=== PATIENT | female | born 1965 | race Caucasian/White ===

== ENCOUNTER → 2021-07-26 | Outpatient (CLI) | payer MEDICARE, OTHER ==
[2021-07-26 13:37] LABS: HEMOGLOBIN 14.5 gm/dl (12.3-15.3); RED BLOOD COUNT 4.65 M/UL (4.00-5.10)
[2021-07-26 13:56] LABS: BUN/CREATININE RATIO 12 (0-10)
== END ==
LOC: LAB 11:30
PROVIDERS: Family Medicine
DX: E78.5 Hyperlipidemia, unspecified (principal); E55.9 Vitamin D deficiency, unspecified; D51.0 Vitamin B12 deficiency anemia due to intrinsic factor deficiency; F32.9 Major depressive disorder, single episode, unspecified
CPT/HCPCS: 36415; 80053; 80061; 82607; 84443; 85027

== ENCOUNTER 2022-05-29 09:59 | Observation (INO) | payer MEDICARE, OTHER ==
[~2022-05-29] VITALS: Ht 167.6 cm; Wt 56.7 kg
[2022-05-29 12:42] LABS: HEMOGLOBIN 13.9 gm/dl (12.3-15.3); RED BLOOD COUNT 4.64 M/UL (4.00-5.10); WHITE BLOOD COUNT 12.6 K/UL (4.5-11.0)
[2022-05-29 13:30] LABS: BUN/CREATININE RATIO 16 (0-10)
[2022-05-29] MEDS ORDERED: FLECAINIDE ACE150 MG PO (15:02)
[2022-05-29] MEDS ORDERED: PROPRANOLOL HCL20 MG PO (15:03)
[2022-05-29] MEDS ORDERED: VITAMIN D325 MC6 PO (15:03)
[2022-05-29] MEDS ORDERED: PROAIR HFA8.5 GM INH (15:03)
[2022-05-29] MEDS ORDERED: VITAMIN B-121000 MCG PO (15:03)
[2022-05-29] MEDS ORDERED: OMEPRAZOLE40 MG PO (15:03)
[2022-05-30 03:38] LABS: HEMOGLOBIN 12.2 gm/dl (12.3-15.3)
[2022-05-30 04:02] LABS: RED BLOOD COUNT 4.03 M/UL (4.00-5.10); WHITE BLOOD COUNT 9.4 K/UL (4.5-11.0)
[2022-05-30 04:22] LABS: BUN/CREATININE RATIO 12 (0-10)
[2022-05-30] MEDS ORDERED: ATORVASTATIN CA20 MG PO (17:58)
[2022-05-30] MEDS ORDERED: CLOPIDOGREL75 MG PO (17:58)
[2022-05-30] MEDS ORDERED: ASPIRIN EC81 MG PO (17:58)
== END 2022-05-30 19:04 | disposition home or self-care (01) ==
LOC: ER1 09:59 → CDU 14:13 → M/S 14:13
PROVIDERS: Physician Assistant; Physician Assistant Medical; ADMIT Internal Medicine Infectious Disease
DX: R42 Dizziness and giddiness (principal); R11.2 Nausea with vomiting, unspecified; I65.09 Occlusion and stenosis of unspecified vertebral artery; I47.1 Supraventricular tachycardia; R51.9 Headache, unspecified; F17.210 Nicotine dependence, cigarettes, uncomplicated; K21.9 Gastro-esophageal reflux disease without esophagitis; E87.6 Hypokalemia; D72.829 Elevated white blood cell count, unspecified; I49.3 Ventricular premature depolarization; H53.2 Diplopia; R47.1 Dysarthria and anarthria; Z88.1 Allergy status to other antibiotic agents; Z88.5 Allergy status to narcotic agent; Z20.822 Contact with and (suspected) exposure to COVID-19
CPT/HCPCS: ECHO; 36415; 70450; 70496; 70498; 70551; 80048; 80053; 81001; 82550; 82553; 83735; 84484; 85025; 85027; 93005; 93306; 97161; 97530; C9113; G0378; J2405; J3480; Q9967; U0002